=== PATIENT | female | born 1965 | race Caucasian/White ===

== ENCOUNTER 2016-06-20 06:11 | Day surgery (SDC) | payer OTHER ==
[2016-06-20] VITALS (13 sets, daily range): BP systolic 89–114; BP diastolic 56–79; PULSE 68–96; RESP 16–18; TEMP 97.7–98; O2SAT 93–97
[~2016-06-20] VITALS: Ht 162.6 cm; Wt 67.0 kg
[~2016-06-20 06:11] MED LIST: ALTA1.256 PO; AMIO200 PO; ASPI81 PO; ATOR40TA49 PO; BACT800T5 PO; CLOP75 PO; FURO20 PO; KCL10C PO; METO25 PO; POLY17S PO
[2016-06-20] MEDS: SODIUM CHLORID 0.9% 500 ML IV SCH ×2 (06:45→23:25)
[2016-06-20] MEDS: LACTATED RINGER'S 1000 ML IV SCH (06:45)
[2016-06-20] MEDS ORDERED: ALPR0.25 PO (06:45)
[2016-06-20] MEDS ORDERED: METOPROLOL TARTRATE 25 MG TAB PO PRN (06:45)
[2016-06-20] MEDS ORDERED: INSULIN HUMAN REGULAR 1,000 UNITS/10 ML VIAL SQ PRN (06:45)
[2016-06-20] MEDS ORDERED: DIGO0.25 PO (06:45)
[2016-06-20] MEDS ORDERED: PLAV75TA29 PO (06:45)
[2016-06-20] MEDS ORDERED: ATOR40TA16 PO (06:45)
[2016-06-20] MEDS ORDERED: MUPIROCIN 2% OINT 1 APPLIC/GM SYR NASAL SCH (07:00)
[2016-06-20] MEDS ORDERED: POVIDONE IODINE 5% (ANTISEPSIS KIT) 4 APPLICATIONS EACH NARE SCH (07:00)
[2016-06-20] MEDS ORDERED: CHLORHEXIDINE GLUCONATE 2 % 1 PACK (2 CLOTHS) TOP SCH (07:00)
[2016-06-20] MEDS ORDERED: ceFAZolin 2 GM PREMIX 50 ML IV SCH (07:00)
[2016-06-20] MEDS: NS 1000 ML IV SCH (07:00)
[2016-06-20] MEDS ORDERED: LORazepam 1 MG TAB SL SCH (07:00)
[2016-06-20] MEDS ORDERED: VANCOMYCIN HCL 1000 MG VIAL ONE (07:12)
[2016-06-20] MEDS ORDERED: SODIUM CHLOR 0.9% 250 ML INJ 250 ML ONE (07:12)
[2016-06-20 07:19] LABS: BASOPHIL % 0.7 % (0.0-2.0); EOSINOPHIL # 0.1 TH/MM3 (0-0.4); EOSINOPHIL % 1.7 % (0.0-4.0); HEMATOCRIT 42.4 % (35.0-46.0); HEMO FLAGS DIFF FINAL; LYMPH % 33.2 % (9.0-44.0); LYMPHOCYTE # 2.4 TH/MM3 (1.0-4.8); MEAN CELL VOLUME 86.9 FL (80.0-100.0); MEAN CORPUSCULAR HEMOGLOBIN 29.5 PG (27.0-34.0); MEAN CORPUSCULAR HGB CONC 33.9 % (32.0-36.0); MONO % 7.4 % (0.0-8.0); PLATELET COUNT 261 TH/MM3 (150-450); RED BLOOD COUNT 4.88 MIL/MM3 (4.00-5.30); RED CELL DISTRIBUTION WIDTH 14.1 % (11.6-17.2); WHITE BLOOD COUNT 7.1 TH/MM3 (4.0-11.0)
[2016-06-20 07:28] LABS: APTT (PATIENT) 27.7 SEC (24.3-30.1); PROTHROMBIN TIME - PATIENT 10.7 SEC (9.8-11.6)
[2016-06-20 07:30] LABS: BICARBONATE 27.3 MEQ/L (21.0-32.0); POTASSIUM 3.5 MEQ/L (3.5-5.1)
[2016-06-20] MEDS ORDERED: VANCOMYCIN 500 MG VIAL ONE (10:21)
[2016-06-20] MEDS ORDERED: LIDOCAINE HCL 2% 50 ML VIAL ONE (10:22)
[2016-06-20] MEDS ORDERED: KETAMINE HCL 500 MG/5 ML VIAL ONE (10:24)
[2016-06-20] MEDS ORDERED: MIDAZOLAM HCL 2 MG/2 ML VIAL ONE ×2 (10:24→11:38)
[2016-06-20] MEDS ORDERED: PROPOFOL 200 MG/20 ML AMP OTHER ONE (12:09)
[2016-06-20] MEDS ORDERED: SODIUM CHLORIDE 0.9% FLUSH 5 ML FLUSH IVF PRN (12:15)
[2016-06-20] MEDS ORDERED: MAGNESIUM HYDROXIDE SUSP 30 ML CUP PO PRN (12:15)
[2016-06-20] MEDS ORDERED: ALPRAZolam 0.25 MG TAB PO PRN (12:15)
[2016-06-20] MEDS ORDERED: ONDANSETRON HCL 4 MG/2 ML VIAL IV PRN (12:15)
[2016-06-20] MEDS ORDERED: traMADol HCL 50 MG TAB PO PRN (12:15)
[2016-06-20] MEDS ORDERED: TEMAZEPAM 15 MG CAP PO PRN (12:15)
--- NOTE | 2016-06-20 12:58 | RADRPT ---
EXAM DATE/TIME: 06/20/2016 12:17 [place] COMPARISON: CHEST SINGLE AP, February 10, 2016, 4:27. INDICATIONS : Post ICD placement. MEDICAL HISTORY : Cardiovascular disease. SURGICAL HISTORY : CABG. ENCOUNTER: Initial ACUITY: 1 day PAIN SCORE: 0/10 LOCATION: Bilateral chest FINDINGS: The cardiac silhouette is enlarged in transverse diameter. There is prominence of the central pulmona ry vasculature with indistinct vascular margins compatible with vascular congestion but no evidence o f overt failure. A defibrillator device is in place via a left sided approach. Median sternotomy wire s are present. CONCLUSION: 1. There is no evidence of pneumothorax. 2. Cardiomegaly and findings of vascular congestion without overt failure. Meet Up MD on June 20, 2016 at 12:56 Board Certified Radiologist. This report was verified electronically.
[2016-06-20] MEDS ORDERED: PILL SPLITTER OTHER PRN (13:15)
[2016-06-20] MEDS: SOTALOL HCL 80 MG TAB PO SCH ×2 (13:29→20:58)
[2016-06-20] MEDS: traMADol HCL 50 MG TAB PO PRN ×2 (13:30→17:29)
[2016-06-20] MEDS: ceFAZolin 2 GM PREMIX 50 ML IV SCH ×2 (15:20→23:49)
[2016-06-20] MEDS: SODIUM CHLORIDE 0.9% FLUSH 5 ML FLUSH IVF SCH (20:58)
[2016-06-20] MEDS ORDERED: ATORVASTATIN 40 MG TAB PO SCH (21:00)
[2016-06-21] VITALS (11 sets, daily range): BP systolic 90–107; BP diastolic 58–69; PULSE 77–96; RESP 16–18; TEMP 97–97.9; O2SAT 92–96
[2016-06-21] MEDS: traMADol HCL 50 MG TAB PO PRN (03:11)
[2016-06-21] MEDS: LACTATED RINGER'S 1000 ML IV SCH (06:45)
[2016-06-21] MEDS: NS 1000 ML IV SCH (07:00)
[2016-06-21] MEDS: SOTALOL HCL 80 MG TAB PO SCH (08:34)
[2016-06-21] MEDS: ceFAZolin 2 GM PREMIX 50 ML IV SCH (08:34)
[2016-06-21] MEDS: SODIUM CHLORIDE 0.9% FLUSH 5 ML FLUSH IVF SCH (08:35)
[2016-06-21] MEDS ORDERED: DIGOXIN 0.25 MG TAB PO SCH (09:00)
[2016-06-21] MEDS ORDERED: CLOPIDOGREL 75 MG TAB PO SCH (09:00)
[2016-06-21] MEDS ORDERED: SOTA80 PO (11:24)
--- NOTE | 2016-06-21 11:30 | PD.CARD.PN ---
Subjective Subjective Remarks Feels ok. Objective Medications Current Medications Medications (Trade) Dose Ordered Sig/Ayanna Route Start Time Stop Time Status Last Admin Lactated Ringer's 1,000 ml @ 30 mls/hr Q24H IV 06/20/16 06:45 (NS 1000 ml Inj) 1,000 ml @ 30 mls/hr Q24H IV 06/20/16 07:00 (Restoril) 15 mg HS PRN PO 06/20/16 12:15 06/20/16 20:59 (Milk Of Magnesia Liq) 30 ml Q6H PRN PO 06/20/16 12:15 (Zofran Inj) 4 mg Q4H PRN IV 06/20/16 12:15 (Ultram) 25 mg Q4H PRN PO 06/20/16 12:15 06/21/16 08:37 (Ultram) 50 mg Q4H PRN PO 06/20/16 12:15 06/21/16 03:11 (NS Flush) 2 ml BID IVF 06/20/16 21:00 06/21/16 08:35 (NS Flush) 2 ml UNSCH PRN IVF 06/20/16 12:15 (Xanax) 0.25 mg Q8H PRN PO 06/20/16 12:15 06/20/16 13:30 (Lipitor) 40 mg HS PO 06/20/16 21:00 06/20/16 20:58 (Plavix) 75 mg DAILY PO 06/21/16 09:00 06/21/16 08:34 (Lanoxin) 0.25 mg DAILY PO 06/21/16 09:00 06/21/16 08:34 (Betapace) 40 mg Q12HR PO 06/20/16 13:00 06/21/16 08:34 (Pill Splitter) 1 ea UNSCH PRN OTHER 06/20/16 13:15 Vital Signs / I&O Vital Signs Date Time Temp Pulse Resp B/P Pulse Ox O2 Delivery O2 Flow Rate FiO2 06/21/16 11:20 77 06/21/16 10:19 80 06/21/16 08:30 97.7 86 18 90/62 96 06/21/16 06:00 82 06/21/16 05:00 83 06/21/16 04:00 83 2/3/17 03:00 86 06/21/16 03:00 97.9 86 16 107/69 92 06/21/16 02:00 96 06/21/16 01:00 82 06/21/16 00:00 97.9 79 16 90/60 92 06/21/16 00:00 80 06/20/16 23:00 78 06/20/16 22:00 76 06/20/16 21:00 80 06/20/16 20:00 98.0 79 16 89/64 93 06/20/16 20:00 80 06/20/16 19:00 78 06/20/16 18:33 16 06/20/16 18:00 82 06/20/16 17:00 78 06/20/16 16:00 97.8 76 18 94/56 96 06/20/16 16:00 68 06/20/16 15:00 76 06/20/16 14:00 91 06/20/16 13:00 93 06/20/16 12:30 96 I/O 06/20/16 06/20/16 06/20/16 06/21/16 06/21/16 06/21/16 07:00 15:00 23:00 07:00 15:00 23:00 Intake Total 540 ml 530 ml Output Total 450 ml Balance 90 ml 530 ml Intake Oral 540 ml 480 ml IV Total 50 ml Output Urine Total 450 ml # Voids 1 2 # Bowel Movements 1 0 Physical Exam GENERAL: Well-nourished, well-developed patient. SKIN: Warm and dry. LCW incision well approximated without erythema or drainage. HEAD: Normocephalic. EYES: No scleral icterus. No injection or drainage. NECK: Supple, trachea midline. No JVD or lymphadenopathy. CARDIOVASCULAR: Regular rate and rhythm without murmurs, gallops, or rubs. RESPIRATORY: Breath sounds equal bilaterally. No accessory muscle use. GASTROINTESTINAL: Abdomen soft, non-tender, nondistended. EXTREMITIES: No cyanosis, or edema. NEUROLOGICAL: Awake, alert, and oriented x 3. Non-focal. Imaging Last 48 hours Impressions Chest X-Ray 06/20/16 0000 Signed Impressions: Service Date/Time: June 12:17 - CONCLUSION: 1. There is no evidence of pneumothorax. 2. Cardiomegaly and findings of vascular congestion without overt failure. Meet Up MD Assessment and Plan Problem List: (1) SVT (supraventricular tachycardia) Assessment and Plan: Sotalol initiated. Stable this a.m. (2) S/P ICD (internal cardiac defibrillator) procedure Assessment and Plan: Incision clean, device function appropriate. DC home, f/u with Dr. Rincon in 2 weeks. Post operative education completed. (3) Cardiomyopathy Assessment and Plan: BP inadequate to initiate ACEI at this time. It will be re-evaluated in office. Assessment and Plan A&P d/w Dr. Rincon, pt., RN. Problem Qualifiers (1) Cardiomyopathy: Qualified Code: I25.5 - Ischemic cardiomyopathy Paola Vega Jun 21, 2016 11:30
[2016-06-21] MEDS ORDERED: CEPH-460 PO (11:32)
--- NOTE | 2016-06-21 13:49 | EKG ---
Date Performed: 06/20/2016 Time Performed: 12:39:22 PTAGE: 51 years EKG: Sinus rhythm Left axis deviation Possible WPW pattern Abnormal ECG PREVIOUS TRACING : 02/08/2016 04.11 Since previous tracing, no significant change noted DOCTOR: Ira Faye Interpretating Date/Time 06/21/2016 13:42:50
--- NOTE | 2016-06-21 13:49 | EKG ---
Date Performed: 06/21/2016 Time Performed: 05:33:50 PTAGE: 51 years EKG: Sinus rhythm . Possible left atrial abnormality Left axis deviation Possible WPW pattern Abnormal ECG PREVIOUS TRACING : 06/20/2016 12.39.22 Since previous tracing, no significant change noted DOCTOR: Ira Faye Interpretating Date/Time 06/21/2016 13:46:38
--- NOTE | 2016-06-21 14:03 | EKG ---
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
--- NOTE | 2016-06-23 06:50 | MP ---
cc: DAMIEN PERERA M.D., HANSCY M.D. DATE OF SURGERY: 06/20/2016 PROCEDURE Single-chamber defibrillator implantation and device testing. INDICATION Mrs. Ochoa is a 51-year-old female with a history of coronary artery disease, coronary artery bypass grafting four months ago, ejection fraction still in the 20%, was referred for defibrillator implantation for sudden prevention. The risks, the nature and the benefit of the procedure were clearly stated to her. The risks include pneumothorax, cardiac perforation, stroke, need for open heart surgery and even . She understood and agreed to proceed. DETAILS OF PROCEDURE After written informed consent was obtained, the patient was brought to the EP lab where she was prepped and draped in the usual sterile fashion. Conscious sedation was initiated and maintained throughout the procedure by the anesthesiologist. Once sedation was verified, the left infraclavicular area was anesthetized with 2% Xylocaine. Using modified Seldinger technique, the left subclavian vein was cannulated on one occasion and one guidewire was advanced. Then using a #11 scalpel, a 3 cm incision was made two fingerbreadth below the left clavicle. Dissection was then taken down to the fascial layer using Bovie cautery and blunt dissection. Into the inferior medial direction, the device pocket was dissected. Then the wire was dissected into the pocket. A 2-0 Vicryl suture was placed around the wire to prevent back bleeding. At this point over the wire an 8-Maori dilator and introducer were advanced. As the dilator and wire were removed, an active fixation right ventricular pacing and sensing defibrillatory lead was advanced. After adequate pacing and sensing thresholds were obtained, the lead was secured in the pocket using 2-0 Ethibond suture. At that point the pocket was copiously irrigated using antibiotic solution. The leads were connected to the generator and placed into the pocket. I did proceed with device testing. Initial induction consisted of T-wave shock which induced ventricular fibrillation which was adequately detected and treated by the IC generator delivering a 20 joules defibrillatory shock converting that failed to convert the patient into sinus rhythm. A second shock was delivered at 30 joules. At that point I did rescue the patient with an external 200 joules biphasic. Then at this point polarity was reversed. The patient was observed for five minutes on the table and device testing was performed again. Ventricular fibrillation was induced. The patient failed 30, failed 40 joules. At that point the lead looked in good position with good sensing. The patient has ischemic cardiomyopathy. The next step is to initiate Sotalol at 80 mg twice a day and bring the patient back for another device testing. If at that time the was not working then further decision will be taken. The case will be discussed with the patient. Blood loss minimal. IMPLANTED HARDWARE The implanted defibrillator generator is a [employer] model [id number], serial number [id number]. The right ventricular pacing and sensing defibrillatory lead is a [employer] model [id number], serial number [id number]. THRESHOLDS The right ventricle pacing though in the bipolar mode was 0.7 volts at 0.4 milliseconds. Lead impedance 580 ohms. R-wave at 24.2 mV. The right ventricular defibrillatory threshold was not measured. The patient failed 30 and 40 defibrillatory shock. CONCLUSIONS 1. Successful defibrillator implanted. 2. Unsuccessful device testing. COMMENT/RECOMMENDATION As mentioned before the patient will be discharged home. Sotalol will be initiated and device testing will be performed again at another date. MD SIERRA Ramos/VILLA /12:03 PM /6:34 AM
== END 2016-06-21 12:06 | disposition home or self-care (01) ==
LOC: HDIC 06:11 → HDOC 06:11 → HCIN 12:35 → HDOC 06-21 12:06
PROVIDERS: ATTEND Internal Medicine Interventional Cardiology
DX: I42.0 Dilated cardiomyopathy (principal); I47.1 Supraventricular tachycardia; I51.7 Cardiomegaly; I10 Essential (primary) hypertension; I25.10 Atherosclerotic heart disease of native coronary artery without angina pectoris; R00.2 Palpitations; I87.8 Other specified disorders of veins
CPT/HCPCS: 33249; 71010; 80048; 85025; 85610; 85730; 86850; 86900; 86901; 93005; C1722; C1777; J0690; J2250; J3010; J3370; J7040; J7050; 93642